=== PATIENT | male | born 1965 | race Caucasian/White ===

== ENCOUNTER → 2016-07-19 | Outpatient (CLI) | payer OTHER ==
[~2016-07-19] MED LIST: HYDR-3535 PO; OMPR20CCR PO; PRIL20CA9 PO; TAMS0.4C67 PO; TAMS5CAP PO
== END ==
LOC: PLAB 07:38
PROVIDERS: ATTEND Family Medicine
DX: E29.1 Testicular hypofunction (principal)
CPT/HCPCS: 84402; 84403

== ENCOUNTER → 2017-08-14 | Outpatient (CLI) | payer OTHER ==
[~2017-08-14] MED LIST changes: -OMPR20CCR PO; -TAMS0.4C67 PO
[2017-08-14 11:16] LABS: AUTOMATED NEUTROPHIL # 5.1 TH/MM3 (1.8-7.7); BASOPHIL # 0.1 TH/MM3 (0-0.2); BASOPHIL % 0.8 % (0.0-2.0); EOSINOPHIL # 0.4 TH/MM3 (0-0.4); HEMATOCRIT 51.8 % (39.0-51.0); HEMOGLOBIN 18.3 GM/DL (13.0-17.0); LYMPH % 31.4 % (9.0-44.0); MEAN CELL VOLUME 94.3 FL (80.0-100.0); MEAN CORPUSCULAR HEMOGLOBIN 33.3 PG (27.0-34.0); MEAN CORPUSCULAR HGB CONC 35.3 % (32.0-36.0); MEAN PLATELET VOLUME 8.8 FL (7.0-11.0); MONO % 9.6 % (0.0-8.0); MONOCYTE # 0.9 TH/MM3 (0-0.9); NEUT % 54.2 % (16.0-70.0); PLATELET COUNT 201 TH/MM3 (150-450); RED BLOOD COUNT 5.49 MIL/MM3 (4.50-5.90); RED CELL DISTRIBUTION WIDTH 13.7 % (11.6-17.2); WHITE BLOOD COUNT 9.5 TH/MM3 (4.0-11.0)
[2017-08-14 11:24] LABS: GLOMERULAR FILTRATION RATE 89 ML/MIN (>89)
[2017-08-14 11:26] LABS: ALBUMIN 3.3 GM/DL (3.4-5.0); BICARBONATE 24.8 MEQ/L (21.0-32.0); BLOOD UREA NITROGEN 16 MG/DL (7-18); CALCIUM 8.2 MG/DL (8.5-10.1); CHLORIDE 105 MEQ/L (98-107); GLUCOSE,FASTING 124 MG/DL (74-99); SODIUM (NA) 137 MEQ/L (136-145)
[2017-08-14 11:58] LABS: ALKALINE PHOSPHATASE 60 U/L (45-117); ALT (GPT) 28 U/L (12-78); AST (GOT) 22 U/L (15-37); CHOLESTEROL 183 MG/DL (120-200); CHOLESTEROL/ HDL RATIO 5.71 RATIO; LDL CHOLESTEROL 112 MG/DL (0-99); TOTAL BILIRUBIN ADULT 0.5 MG/DL (0.2-1.0); TOTAL PROTEIN 6.9 GM/DL (6.4-8.2); TRIGLYCERIDES 194 MG/DL (42-150)
== END ==
LOC: PLAB 06:31
PROVIDERS: ATTEND Family Medicine
DX: M54.5 Low back pain (principal); I10 Essential (primary) hypertension; K21.9 Gastro-esophageal reflux disease without esophagitis; E29.1 Testicular hypofunction; Z12.5 Encounter for screening for malignant neoplasm of prostate; Z13.220 Encounter for screening for lipoid disorders; Z13.21 Encounter for screening for nutritional disorder
CPT/HCPCS: 36415; 80053; 80061; 82306; 82607; 82746; 84153; 84403; 84410; 84439; 84443; 85025

== ENCOUNTER → 2017-09-02 | Day surgery (SDC) | payer OTHER ==
[~2017-09-02] MED LIST changes: -HYDR-3535 PO; +HYDR-3583 PO; +LIDOCAINE HCL 1% 30 ML VIAL INFIL ONE; +MELO15TA20 PO; +MEPERIDINE HCL 25 MG/ML VIAL IV ONE; +MEPERIDINE HCL 50 MG/ML VIAL IV ONE; +MIDAZOLAM HCL 2 MG/2 ML VIAL IV ONE; +OMEP20TA93 PO; -PRIL20CA9 PO; +PROPOFOL 200 MG/20 ML AMP IV ONE; +SODIUM CHLORIDE 0.9% 10 ML VIAL ONE; +VITA20003 PO; +methylPREDNISolone ACETATE 40 MG/ML VIAL I-ARTICULR ONE
--- NOTE | 2017-09-02 08:36 | M6 ---
cc: Abi Hernandez MD DATE: 09/02/2017 DATE OF : 1965 PROCEDURE: Radiofrequency ablation bilateral lumbar facet joints (bilateral L3-L4, L4-L5, and L5-S1 facet joints). PROCEDURE NOTE: History and physical was completed and signed. Consent was signed. Procedure site was marked. Medications were listed and reconciled. Pain score was recorded. Allergies were noted. Time out was taken. Fluoroscopy time was recorded where applicable. Sedation was administered or directed by Dr. Hernandez. The patient was given oxygen. The patient was monitored by a registered nurse. Total procedure time was greater than 15 minutes. Three levels are being done because imaging studies show arthritis in all lumbar facet joints and because each facet joint is innervated by the medial branches from the nerves above and below that particular joint. The patient reported 50% or greater pain relief from previous diagnostic facet joint blocks done with fluoroscopic guidance. An IV was started, blood pressure cuff, pulse oximeter and EKG were applied. The patient was placed in the prone position on a Marcos table, sedated with small amounts of Versed and fentanyl and propofol titrated to effect. Vital signs were monitored and remained stable throughout the procedure. The lumbar area was scrubbed with antimicrobial solution, prepped with 10% Betadine solution, draped with sterile drapes. Fluoroscopy was used in a slightly oblique angle (Gelacio dog view) to clearly visualize the target areas which were the cephalad most medial angle of the transverse processes as they met the pedicle in the anatomical location of the medial branch of the posterior primary ramus on the bilateral L3-L4, L4-L5, and L5-S1 facet joints. The skin was infiltrated with 1% Xylocaine using a 27 gauge needle. An insulated 20 gauge radiofrequency needle with a 10-mm curved tip was advanced to the above-mentioned target areas. Fluoroscopy was used to confirm the needle was properly placed and not near the nerve root. At no time did the patient report any paresthesias down the lower extremity. Once properly positioned thermal lesions took place at 80 degrees Centigrade x 100 seconds at each location. Then, a small amount of Depo-Medrol was injected at each location for a total of 40 mg of Depo-Medrol. Following this the patient was taken to the recovery room with stable vital signs, neurologically intact. W. MD KARI Singh , 08:14 AM , 08:35 AM
== END | disposition home or self-care (01) ==
LOC: PHSDC 06:30
PROVIDERS: ATTEND Pain Medicine Interventional Pain Medicine
DX: M54.5 Low back pain (principal)
CPT/HCPCS: 64635; 64636; 99152; 99153; J1030; J2175; J2250

== ENCOUNTER 2017-11-29 12:50 | Emergency (ER) | payer OTHER ==
[~2017-11-29] VITALS: Ht 177.8 cm; Wt 99.4 kg
[2017-11-29 12:50] VITALS: BP 181/94; PULSE 77; RESP 14; O2SAT 98
[~2017-11-29 12:50] MED LIST changes: -LIDOCAINE HCL 1% 30 ML VIAL INFIL ONE; -MEPERIDINE HCL 25 MG/ML VIAL IV ONE; -MEPERIDINE HCL 50 MG/ML VIAL IV ONE; -MIDAZOLAM HCL 2 MG/2 ML VIAL IV ONE; -PROPOFOL 200 MG/20 ML AMP IV ONE; -SODIUM CHLORIDE 0.9% 10 ML VIAL ONE; -methylPREDNISolone ACETATE 40 MG/ML VIAL I-ARTICULR ONE
[2017-11-29] MEDS ORDERED: Potassium PO (12:59)
[2017-11-29] MEDS ORDERED: MULT-65 PO (12:59)
[2017-11-29] MEDS ORDERED: TEST1KIT IM (13:00)
[2017-11-29] MEDS ORDERED: MORPHINE SULFATE 4 MG/ML INJ IM ONE (13:45)
[2017-11-29] MEDS ORDERED: DEXAMETHASONE SOD PHOS 4 MG/ML VIAL IM ONE (13:45)
[2017-11-29] MEDS ORDERED: ONDANSETRON ODT 4 MG TAB PO ONE (13:45)
--- NOTE | 2017-11-29 13:47 | PD ---
HPI Chief Complaint: Pain: Acute or Chronic Time Seen by Provider: 13:33 Travel History International Travel<30 days: No Contact w/Intl Traveler<30days: No Traveled to known affect area: No History of Present Illness HPI 52-year-old male presents to the emergency department for evaluation of low back pain that started on Friday without traumatic injury. Patient has history of chronic back pain. He sees Dr. Hernandez, pain management. He is currently on hydrocodone/acetaminophen 10/325 mg. He last took this at 5 AM this morning. Patient states that he called Dr. Hernandez on , but never received a call back. He states his pain is in his lower back and radiates to the right buttock. Patient currently states the pain is 0/10 with lying still, 10/10 with movement. He denies any fevers or chills. No loss of bowel or bladder control. No saddle anesthesias. Patient denies any other symptoms or complaints. Moderate severity. PFSH Past Medical History Cancer: No Cardiovascular Problems: No Diabetes: No Diminished Hearing: No Endocrine: No Gastrointestinal Disorders: Yes (GERD) GERD: Yes Genitourinary: No Hepatitis: No Hiatal Hernia: No Immune Disorder: No Musculoskeletal: Yes (CHRONIC LUMBAR PAIN, ARTHRITIS IN NECK) Neurologic: No Psychiatric: No Respiratory: No Immunizations Current: No Thyroid Disease: No Tetanus Vaccination: < 5 Years Influenza Vaccination: No Past Surgical History Abdominal Surgery: No Body Medical Devices: N/A Cardiac Surgery: No Ear Surgery: No Endocrine Surgery: No Eye Surgery: No Genitourinary Surgery: No Joint Replacement: No Neurologic Surgery: Yes (RADIO FREQUENCY LESIONING IN BACK) Oral Surgery: Yes (DENTAL WORK-CROWNS) Pacemaker: No Thoracic Surgery: No Social History Alcohol Use: No Tobacco Use: Yes (1 PPD) Substance Use: No Allergies-Medications (Allergen,Severity, Reaction): Coded Allergies: No Known Allergies (Unverified , 09/02/17) Reported Meds & Prescriptions Reported Meds & Active Scripts Active Reported Testone Cik Inj (Testosterone Cypionate) 200 Mg/Ml Kit 100 Mg IM Q15D Multi-Vitamin Daily (Multiple Vitamin) 1 Tab Tab 1 Tab PO DAILY [Potassium ] 90 Mg PO DAILY Vitamin D (Cholecalciferol) 2,000 Unit Tab 5,000 Units PO 2XWEEK Meloxicam 15 Mg Tab 15 Mg PO DAILY Hydrocodone-Acetaminophen 10-325 mg Tab 1 Tab PO Q4H PRN Omeprazole 20 Mg Tab 20 Mg PO DAILY Flomax (Tamsulosin HCl) 0.4 Mg Cap 0.4 Mg PO DAILY Review of Systems Except as stated in HPI: all other systems reviewed are Neg Physical Exam Narrative GENERAL: Well-nourished, well-developed male patient, afebrile. Patient appears uncomfortable and in pain. SKIN: Focused skin assessment warm/dry. HEAD: Normocephalic. Atraumatic. EYES: No scleral icterus. No injection or drainage. NECK: Supple, trachea midline. No JVD or lymphadenopathy. CARDIOVASCULAR: Regular rate and rhythm without murmurs, gallops, or rubs. Bilateral radial and pedal pulses are 2+. RESPIRATORY: Breath sounds equal bilaterally. No accessory muscle use. Lung sounds are clear to auscultation. GASTROINTESTINAL: Abdomen soft and nondistended. MUSCULOSKELETAL: No cyanosis, or edema. Bilateral upper and lower extremity strength 5/5. All extremities are neurovascularly intact. BACK: No obvious deformity. No CVA tenderness. Patient has tenderness to palpation over the midline lumbar spine. Data Data Last Documented VS Vital Signs Date Time Temp Pulse Resp B/P (MAP) Pulse Ox O2 Delivery O2 Flow Rate FiO2 11/29/17 14:31 97.6 11/29/17 12:50 77 14 181/94 (123) 98 Orders Orders Morphine Inj (Morphine Inj) (11/29/17 13:45) Dexamethasone Inj (Decadron Inj) (11/29/17 13:45) Ondansetron Odt (Zofran Odt) (11/29/17 13:45) Orphenadrine Inj (Norflex Inj) (11/29/17 14:45) [facility] Medical Decision Making Medical Screen Exam Complete: Yes Emergency Medical Condition: Yes Medical Record Reviewed: Yes Differential Diagnosis Muscle strain versus muscle spasm versus herniated disc versus sciatica Narrative Course 52-year-old male presents to the emergency department for evaluation of low back pain. Patient appears to be in pain. No red flag symptoms. No recent traumatic injury. Patient is given morphine 4 mg IV, Zofran 4 mg ODT, dexamethasone 8 mg IM. Upon reassessment, Patient reports mild improvement. He is given Norflex 60 mg IM. Patient will be discharged with a prescription for Robaxin, prednisone. He is to continue his hydrocodone as needed for pain and follow up with his pain management physician on Friday. He is to return here for any acute, worsening of symptoms. He verbalizes agreement and understanding. Diagnosis Primary Impression: Acute exacerbation of chronic low back pain Referrals: Pain Management 2 days Patient Instructions: Chronic Back Pain (ED), General Instructions Departure Forms: Tests/Procedures, Work Release Enter return to work date: Dec 02, 2017 Additional Instructions: Continue prescribed pain medication as needed for pain. Take prednisone as directed. Start this tomorrow. Take Robaxin as directed as needed. Heating pad on low for 20 mins 4-5 times daily. Follow up with your pain management physician. Return to the emergency department for any acute, worsening of symptoms. Med/Other Pt SpecificInfo: Prescription(s) given Scripts Methocarbamol (Robaxin) 750 Mg Tab 750 MG PO QID for Muscle Spasm, #28 TAB 0 Refills Prov: Nubia Harrison 11/29/17 Prednisone (Prednisone) 20 Mg Tab 40 MG PO DAILY, #10 TAB 0 Refills Take 40 mg (2 tablets) daily for 5 days Prov: Nubia Harrison 11/29/17 Disposition: 01 DISCHARGE HOME Condition: Stable Nubia Harrison Nov 29, 2017 13:47
[2017-11-29 14:31] VITALS: TEMP 97.6
[2017-11-29] MEDS ORDERED: ROBA750T PO (14:34)
[2017-11-29] MEDS ORDERED: PRED20 PO (14:34)
[2017-11-29] MEDS ORDERED: ORPHENADRINE INJ 60 MG/2 ML AMP IM ONE (14:45)
[2017-11-30] MEDS ORDERED: POTA99TA4 PO (10:20)
== END 2017-11-29 14:46 | disposition home or self-care (01) ==
LOC: PHEFT 12:50
DX: M54.5 Low back pain (principal); G89.29 Other chronic pain; Z72.0 Tobacco use
CPT/HCPCS: 96372; 99283; J1100; J2270; J2360